=== PATIENT | female | born 1990 | race Caucasian/White ===

== ENCOUNTER 2021-06-13 03:04 | Emergency (ER) | payer OTHER ==
[2021-06-13] MEDS ORDERED: Ondansetron ODT 4 MG TAB ONE (03:41)
[2021-06-13] MEDS ORDERED: Dicyclomine 20 MG TAB ONE (03:41)
[2021-06-13 15:36] LABS: SARS-CoV-2 PCR by NAA Not Detected (NotDetected)
== END 2021-06-13 04:20 | disposition home or self-care (01) ==
LOC: BURERS 03:04
DX: R50.9 Fever, unspecified (principal); R19.7 Diarrhea, unspecified; Z20.822 Contact with and (suspected) exposure to COVID-19
CPT/HCPCS: 99284; Q0162; U0003; U0005

== ENCOUNTER 2025-08-04 13:14 | Emergency (ER) | payer SELFPAY | END 2025-08-04 13:43 | disposition home or self-care (01) | LOC: BURERS 13:14 | DX: S30.814A Abrasion of vagina and vulva, initial encounter (principal); V19.3XXA Pedal cyclist (driver) (passenger) injured in unspecified nontraffic accident, initial encounter; Y93.55 Activity, bike riding | CPT/HCPCS: 99282 ==